=== PATIENT | male | born 1965 | race American Indian/Alaskan Native ===

== ENCOUNTER 2017-05-10 02:34 | Emergency (ER) | payer MEDICARE, OTHER ==
[2017-05-10 02:34] VITALS: BMI 39.5
--- NOTE | 2017-05-10 02:39 | ED PDOC ---
Arrival/HPI - General Time Seen by Provider: 05/10/17 02:35 Historian: Patient - History of Present Illness Narrative History of Present Illness (Text): 05/10/17 02:55 Johnnie Frank is a 51 year old male, whose past medical history includes chronic pain, HIV/AIDS, left CVA, left tibula/fibular fracture, COPD, hypertension, and obesity, who presents to the ED brought in by EMS status post fall. Patient tonight while at home a piece of the ceiling/plaster fell on to back of his head and right side. Patient now complaining of right shoulder pain. Patient denies any loss of consciousness, chest pain, shortness of breath, nausea, vomiting, back pain, neck pain, headache, dizziness, or any other complaints. Time/Duration: Prior to Arrival Symptom Onset: Sudden Symptom Course: Unchanged Activities at Onset: Light Context: Home Past Medical History - Provider Review Nursing Documentation Reviewed: Yes - Infectious Disease Hx of Infectious Diseases: None - Tetanus Immunization Tetanus Immunization: Unknown - Cardiac Hx Cardiac Disorders: Yes Hx Congestive Heart Failure: No Hx Hypertension: No - Pulmonary Hx Chronic Obstructive Pulmonary Disease (COPD): No - Neurological HX Cerebrovascular Accident: No - HEENT Hx HEENT Disorder: Yes (glasses) - Renal Hx Renal Failure: No - Endocrine/Metabolic Hx Diabetes Mellitus Type 1: No Hx Diabetes Mellitus Type 2: No Hx Hypothyroidism: No - Hematological/Oncological Hx Cancer: No - Integumentary Hx Dermatological Disorder: No Hx Basal Cell Carcinoma: No - Musculoskeletal/Rheumatological Hx Arthritis: No Hx Rheumatoid Arthritis: No - Gastrointestinal Hx Gastroesophageal Reflux: No - Genitourinary/Gynecological Hx Genitourinary Disorders: No - Psychiatric Hx Anxiety: Yes Hx Substance Use: No - Surgical History Hx Appendectomy: Yes Hx Cardiac Catheterization: No Hx Cholecystectomy: Yes Hx Coronary Stent: No - Anesthesia Hx Anesthesia: Yes Hx Anesthesia Reactions: No Hx Malignant Hyperthermia: No - Suicidal Assessment Feels Threatened In Home Enviroment: No Family/Social History - Physician Review Nursing Documentation Reviewed: Yes Family/Social History: Unknown Family HX Smoking Status: Heavy Smoker > 10 Cigarettes Daily Hx Alcohol Use: No Hx Substance Use: No Allergies/Home Meds Allergies/Adverse Reactions: Allergies Iodinated Contrast- Oral and IV Dye [Iodinated Contrast Media - Oral and] Allergy (Verified 05/10/17 02:53) SHORTNESS OF BREATH Penicillins Allergy (Verified 05/10/17 02:53) SHORTNESS OF BREATH shellfish derived Allergy (Verified 05/10/17 02:53) SHORTNESS OF BREATH sulfamethoxazole [From Bactrim] Allergy (Verified 05/10/17 02:53) ITCHING trimethoprim [From Bactrim] Allergy (Verified 05/10/17 02:53) ITCHING mushroom Allergy (Uncoded 05/10/17 02:53) ITCHING Home Medications: Home Meds Medication Instructions Recorded Confirmed Unobtainable 05/10/17 05/10/17 Review of Systems - Physician Review All systems were reviewed & negative as marked: Yes - Review of Systems Constitutional: Normal. absent: Fevers Eyes: Normal ENT: Normal Respiratory: Normal. absent: SOB, Cough Cardiovascular: Normal. absent: Chest Pain Gastrointestinal: Normal. absent: Abdominal Pain, Diarrhea, Nausea, Vomiting Genitourinary Male: Normal. absent: Dysuria, Frequency, Hematuria, Urinary Output Changes Musculoskeletal: Arthralgias (+right shoulder pain). absent: Back Pain, Neck Pain Skin: Normal. absent: Rash Neurological: Normal. absent: Headache, Dizziness Endocrine: Normal Hemo/Lymphatic: Normal Psychiatric: Normal Physical Exam Vital Signs Reviewed: Yes Vital Signs Temp Pulse Resp BP Pulse Ox 05/10/17 06:19 67 18 137/62 100 05/10/17 02:55 98.4 F 68 16 141/78 98 Temperature: Afebrile Blood Pressure: Normal Pulse: Regular Respiratory Rate: Normal Appearance: Positive for: Well-Appearing, Non-Toxic, Comfortable Pain Distress: None Mental Status: Positive for: Alert and Oriented X 3 - Systems Exam Head: Present: Atraumatic, Normocephalic Pupils: Present: PERRL Extroacular Muscles: Present: EOMI Conjunctiva: Present: Normal Mouth: Present: Moist Mucous Membranes Neck: Present: Normal Range of Motion Respiratory/Chest: Present: Clear to Auscultation, Good Air Exchange. No: Respiratory Distress, Accessory Muscle Use Cardiovascular: Present: Regular Rate and Rhythm, Normal S1, S2. No: Murmurs Abdomen: Present: Normal Bowel Sounds. No: Tenderness, Distention, Peritoneal Signs Back: Present: Normal Inspection Upper Extremity: Present: Normal Inspection. No: Cyanosis, Edema Lower Extremity: Present: Normal Inspection. No: Edema Neurological: Present: GCS=15, CN II-XII Intact, Speech Normal Skin: Present: Warm, Dry, Normal Color. No: Rashes Psychiatric: Present: Alert, Oriented x 3, Normal Insight, Normal Concentration Medical Decision Making ED Course and Treatment: 05/10/17 02:55 Impression: 51 year old male complaining of right shoulder pain today Plan: -- CT Head w/o contrast -- XR Right Shoulder -- Oxycodone -- Reassess and disposition Progress Notes: 05/10/17 04:53 Reviewed XR Shoulder, shows arthritic changes, otherwise no acute processes. 05/10/17 05:02 CT Head shows: Brain: Minimal atrophy. No intracranial hemorrhage. No mass. Moderate encephalomalacia within LEFT parietal region. Few scattered foci of decreased attenuation within periventricular/subcortical white matter. No edema. Ventricles: No hydrocephalus. Bones/joints: No acute fracture. Soft tissues: Mild stranding within scalp. Vasculature: Minimal atherosclerotic disease of intracranial arteries. Sinuses: Scattered minimal mucosal thickening of ethmoid sinuses. Mastoid air cells: No mastoid effusion. Orbits: Unremarkable as visualized. IMPRESSION: 1. No intracranial hemorrhage. 2. Nonspecific white matter changes. 3. Incidental/non-acute findings are described above. 05/10/17 05:59 On reevaluation the patient feels better and is in no acute distress. I have discussed the results and plan with the patient, who expresses understanding. Patient given the opportunity to ask question, all questions were answered and there is agreement with the plan to discharge the patient home. Patient is stable for discharge. Patient was instructed to follow up with physician/clinic in 1-2 days or return if symptoms persist/worsen or new concerning symptoms arise. - RAD Interpretation Radiology Orders: 05/10/17 02:59 HEAD W/O CONTRAST [CT] Stat 05/10/17 03:00 SHOULDER RIGHT [RAD] Stat - Medication Orders Current Medication Orders: Discontinued Medications Oxycodone HCl (Oxycodone Immediate Release Tab) 30 mg PO STAT STA Stop: 05/10/17 03:01 Last Admin: 05/10/17 03:15 Dose: 30 mg [facility] Pain Assessment Document 05/10/17 03:15 OCS (Rec: 05/10/17 03:19 OCS [id number]) Pain Reassessment Is this a pain reassessment? Yes Sleep Is patient sleeping during reassessment? 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 I have reviewed the chart and agree that the record accurately reflects my personal performance of the history, physical exam, medical decision making, and the department course for this patient. I have also personally directed, reviewed, and agree with the discharge instructions and disposition. Disposition/Present on Arrival - Present on Arrival Any Indicators Present on Arrival: No History of DVT/PE: No History of Uncontrolled Diabetes: No Urinary Catheter: No History Surgical Site Infection Following: Orthopedic Procedures - Disposition Have Diagnosis and Disposition been Completed?: Yes Diagnosis: Shoulder sprain Disposition: HOME/ ROUTINE Disposition Time: 05:59 Condition: GOOD Discharge Instructions (ExitCare): Shoulder Sprain (ED) Additional Instructions: use sling 4 to 5 days Referrals: Berna Newman MD [Primary Care Provider] - Follow up with primary Forms: [employer] ([place])
[2017-05-10 02:55] VITALS: TEMP 98.4
[2017-05-10] MEDS ORDERED: oxyCODONE 30 mg Immediate Release Tab PO STA (03:00)
--- NOTE | 2017-05-10 05:04 | CT ---
EXAM: CT Head Without Intravenous Contrast CLINICAL HISTORY: 51 years old, male; Injury or trauma; Fall; Initial encounter; Concussion / head injury TECHNIQUE: Axial computed tomography images of the head/brain without intravenous contrast. All CT scans at this facility use one or more dose reduction techniques, viz.: automated exposure control; ma/kV adjustment per patient size (including targeted exams where dose is matched to indication; i.e. head); or iterative reconstruction technique. COMPARISON: CT - HEAD W/O CONTRAST 08/13/2016 11:22:05 AM FINDINGS: Brain: Minimal atrophy. No intracranial hemorrhage. No mass. Moderate encephalomalacia within LEFT parietal region. Few scattered foci of decreased attenuation within periventricular/subcortical white matter. No edema. Ventricles: No hydrocephalus. Bones/joints: No acute fracture. Soft tissues: Mild stranding within scalp. Vasculature: Minimal atherosclerotic disease of intracranial arteries. Sinuses: Scattered minimal mucosal thickening of ethmoid sinuses. Mastoid air cells: No mastoid effusion. Orbits: Unremarkable as visualized. IMPRESSION: 1. No intracranial hemorrhage. 2. Nonspecific white matter changes. 3. Incidental/non-acute findings are described above.
[2017-05-10 06:19] VITALS: BP 137/62; PULSE 67; RESP 18; O2SAT 100
--- NOTE | 2017-05-10 08:50 | RAD ---
PROCEDURE: Radiographs of the Right Shoulder HISTORY: fall COMPARISON: No prior. FINDINGS: BONES: Technically limited examination. No evidence of fracture. JOINTS: Unremarkable glenohumeral articulation. Acromioclavicular degenerative arthritis is noted. SOFT TISSUES: Normal. OTHER FINDINGS: None. IMPRESSION: No acute fracture.
== END 2017-05-10 04:52 | disposition home or self-care (01) ==
LOC: ED 02:34
DX: S43.401A Unspecified sprain of right shoulder joint, initial encounter (principal); W20.8XXA Other cause of strike by thrown, projected or falling object, initial encounter; Y93.9 Activity, unspecified; Y92.009 Unspecified place in unspecified non-institutional (private) residence as the place of occurrence of the external cause

== ENCOUNTER 2017-08-02 09:08 | Emergency (ER) | payer MEDICARE, OTHER ==
[2017-08-02 09:28] VITALS: BMI 37.5
[2017-08-02] MEDS ORDERED: Albuterol-Ipratrop 3 mg / 0.5 (3 ml) UD IH STA (09:37)
--- NOTE | 2017-08-02 09:42 | ED PDOC ---
Arrival/HPI - General Chief Complaint: Flu-like Symptoms Time Seen by Provider: 08/02/17 09:26 Historian: Patient - History of Present Illness Narrative History of Present Illness (Text): 08/02/17 09:39 52 year old male w/Past medical history of HIV, CVA, DJD, smoker, present to Emergency department for evaluation of flu-like symptoms for last couple of days associated with nasal congestion and productive cough with yellow sputum. Pt admits was using inhaler at home with minimal improvement. Pt reports, worried that he may have pneumonia. Otherwise, pt denies high fever, chills, headache, dizziness, neck pain, drooling, dysphagia, dyspnea, shortness of breath, wheezing, palpitation, diaphoresis, abd. pain, N/V/D, back pain, UTI sx , denies peripheral swelling. Pt does have AIDS but last viral load was undetectable. Pt's PMD is Dr. Aiden D[facility]az at [facility] in [place]. Past Medical History - Provider Review Nursing Documentation Reviewed: Yes - Travel History Have you recently traveled outside [place] w/in the past 3 mons?: No - Infectious Disease Hx of Infectious Diseases: None - Tetanus Immunization Tetanus Immunization: Unknown - Cardiac Hx Cardiac Disorders: No - Pulmonary Hx Respiratory Disorders: Yes Hx Bronchitis: Yes - Neurological Hx Neurological Disorder: No - HEENT Hx HEENT Disorder: Yes (glasses) - Renal Hx Renal Disorder: No - Endocrine/Metabolic Hx Endocrine Disorders: No - Hematological/Oncological Hx Blood Disorders: Yes Hx AIDS: Yes - Integumentary Hx Dermatological Disorder: No - Musculoskeletal/Rheumatological Hx Musculoskeletal Disorders: Yes Other/Comment: Oseto-necrosis. Bacterial to Left Knee - Gastrointestinal Hx Gastrointestinal Disorders: No Hx Gastroesophageal Reflux: No - Genitourinary/Gynecological Hx Genitourinary Disorders: No - Psychiatric Hx Psychophysiologic Disorder: Yes Hx Anxiety: Yes Hx Substance Use: No (Former Cocaine User) - Surgical History Hx Appendectomy: Yes Hx Cholecystectomy: Yes Hx Orthopedic Surgery: Yes (Bacteria to Left Knee) - Anesthesia Hx Anesthesia: Yes Hx Anesthesia Reactions: No Hx Malignant Hyperthermia: No - Suicidal Assessment Feels Threatened In Home Enviroment: No Family/Social History - Physician Review Nursing Documentation Reviewed: Yes Family/Social History: No Known Family HX Smoking Status: Light Smoker < 10 Cigarettes Daily Hx Alcohol Use: No Hx Substance Use: No (Former Cocaine User) Allergies/Home Meds Allergies/Adverse Reactions: Allergies Iodinated Contrast- Oral and IV Dye [Iodinated Contrast Media - Oral and] Allergy (Verified 08/02/17 09:29) SHORTNESS OF BREATH Penicillins Allergy (Verified 08/02/17 09:29) SHORTNESS OF BREATH shellfish derived Allergy (Verified 08/02/17 09:29) SHORTNESS OF BREATH sulfamethoxazole [From Bactrim] Allergy (Verified 08/02/17 09:29) ITCHING trimethoprim [From Bactrim] Allergy (Verified 08/02/17 09:29) ITCHING mushroom Allergy (Uncoded 08/02/17 09:29) ITCHING Review of Systems - Review of Systems Constitutional: Normal Eyes: Normal ENT: Normal Respiratory: Cough, Sputum. absent: SOB, Wheezing Cardiovascular: Normal. absent: Chest Pain, Palpitations, Edema, Calf Pain, Orthopnea Gastrointestinal: Normal Genitourinary Male: Normal Musculoskeletal: Normal Skin: Normal Neurological: Normal Endocrine: Normal Hemo/Lymphatic: Normal Psychiatric: Normal Physical Exam Vital Signs Reviewed: Yes Vital Signs Temp Pulse Resp BP Pulse Ox 08/02/17 09:37 98.1 F 80 17 162/82 H 99 Temperature: Afebrile Blood Pressure: Hypertensive Pulse: Regular Respiratory Rate: Normal Appearance: Positive for: Well-Appearing, Non-Toxic, Comfortable, Other ( occasional productive cough noted in ED. Pt spitting up clear sputum.) Pain Distress: None Mental Status: Positive for: Alert and Oriented X 3 - Systems Exam Head: Present: Normocephalic Conjunctiva: Present: Normal Ears: Present: NORMAL TM Mouth: Present: Moist Mucous Membranes. No: Drooling Pharnyx: No: ERYTHEMA, EXUDATE Nose (Internal): Present: Edematous, Rhinorrhea (clear) Neck: Present: Trachea Midline. No: JVD, Bruit (B/L) Respiratory/Chest: Present: Clear to Auscultation, Good Air Exchange. No: Respiratory Distress, Accessory Muscle Use Cardiovascular: Present: Regular Rate and Rhythm, Normal S1, S2. No: Murmurs Abdomen: Present: Normal Bowel Sounds. No: Tenderness, Distention, Peritoneal Signs, Rebound, Guarding Back: Present: Normal Inspection Upper Extremity: Present: Normal ROM. No: Deformity Lower Extremity: Present: Normal ROM. No: Edema, CALF TENDERNESS, Deformity Neurological: Present: GCS=15, Speech Normal Skin: Present: Warm, Dry, Normal Color. No: Rashes Psychiatric: Present: Alert, Oriented x 3, Normal Insight, Normal Concentration Medical Decision Making ED Course and Treatment: 08/02/17 11:53 PT WAS OBS IN Emergency department FOR 2.5 HOURS AND REPORTS IMPROVEMENT IN SX. no more cough noted in ED. Pt denies SOB, dyspnea, CP at present time. Afebrile, hemodynamicaly stable. Non-toxic. PulsEOx 99% RA Neck; Supple, (-) JVD, (-) carotid bruits B/L Lungs: CTA B/L, BS equal B/L. CVS: (+)S1S2, reg Abd: benign, (-) guarding, (-)rebound, (-) localized tenderness. Neuorlogicaly intact. Blood work review and appears without acute abnormalities compare to baseline. CXR, EKG review and appears normal. Pt has clinical findings c/w asthma exacerbation, bronchitis. Pt advised on course of ds. ref. to f/u with PMD in 2-3 days for re-eval. return if any worsening or new changes. - Lab Interpretations Lab Results: 08/02/17 10:35 08/02/17 10:35 Lab Results 08/02/17 10:35: Sodium 137, Potassium 4.6, Chloride 105, Carbon Dioxide 23, Anion Gap 14, BUN 16, Creatinine 1.0, Est GFR ( Amer) > 60, Est GFR (Non- Af Amer) > 60, Random Glucose 105, Calcium 9.5, Total Bilirubin 0.5, AST 27, ALT 36, Alkaline Phosphatase 115, Lactate Dehydrogenase 425, Total Creatine Kinase 221, Troponin I 0.02 D, Total Protein 7.4, Albumin 4.2, Globulin 3.2, Albumin/Globulin Ratio 1.3 08/02/17 10:35: WBC 10.3, RBC 5.37, Hgb 15.3, Hct 45.9, MCV 85.5, MCH 28.5, MCHC 33.3, RDW 15.8 H, Plt Count 213, MPV 9.9, Gran % 60.5, Lymph % (Auto) 25.4 , Wilkinson % (Auto) 11.9 H, Eos % (Auto) 2.0, Baso % (Auto) 0.2, Gran # 6.23, Lymph # 2.6, Wilkinson # 1.2 H, Eos # 0.2, Baso # 0.02 Interpretation: No sign. chg./baseline - RAD Interpretation Radiology Orders: 08/02/17 09:34 CHEST TWO VIEWS (PA/LAT) [RAD] Stat Patient Name / ID : VIDA SKY / [id number] Exam Date : 08/02/2017 11:32:55 ( Approved ) Study Comment : Sex / Age : M / 52Y Creator : Jayden Lizarraga MD Dictator : Jayden Lizarraga MD Senior Principal : Supervisor Pyrotechnic Loading : Jayden Lizarraga MD Approver2 : Report Date : 08/02/2017 11:59:35 My Comment : HISTORY: Cough COMPARISON: 08/09/2016 TECHNIQUE: Chest PA and lateral FINDINGS: LUNGS: No active pulmonary disease. PLEURA: No significant pleural effusion identified. No pneumothorax apparent. CARDIOVASCULAR: Normal. OSSEOUS STRUCTURES: No significant abnormalities. VISUALIZED UPPER ABDOMEN: Normal. OTHER FINDINGS: None. IMPRESSION: No active disease. - Medication Orders Current Medication Orders: Discontinued Medications Albuterol/Ipratropium (Duoneb 3 Mg/0.5 Mg (3 Ml) Ud) 3 ml IH STAT STA Stop: 08/02/17 09:38 Last Admin: 08/02/17 10:42 Dose: 3 ml Azithromycin (Zithromax) 500 mg PO STAT STA PRN Reason: Protocol Stop: 08/02/17 11:04 Last Admin: 08/02/17 12:08 Dose: 500 mg Benzonatate (Tessalon Perles) 200 mg PO STAT STA Stop: 08/02/17 09:40 Last Admin: 08/02/17 10:42 Dose: 200 mg Methylprednisolone (Solu-Medrol) 125 mg IVP STAT STA Stop: 08/02/17 09:38 Last Admin: 08/02/17 10:42 Dose: 125 mg IVP Administration Document 08/02/17 10:42 OCS (Rec: 08/02/17 10:42 OCS [id number]) Charges for Administration # of IVP Administrations 1 Disposition/Present on Arrival - Present on Arrival Any Indicators Present on Arrival: No History of DVT/PE: No History of Uncontrolled Diabetes: No Urinary Catheter: No History of Decub. Ulcer: No History Surgical Site Infection Following: None - Disposition Have Diagnosis and Disposition been Completed?: Yes Diagnosis: Bronchitis, Asthma Disposition: HOME/ ROUTINE Disposition Time: 11:51 Patient Plan: Discharge Patient Problems: Current Active Problems Problem Status Onset Bronchitis Acute Asthma Acute Condition: STABLE Additional Instructions: ENCOURAGE FLUIDS BED REST FOR 2-3 DAYS TAKE MEDICATION PRESCRIBED NEBULIZER TREATMENT EVERY 4 HOURS FOR 1-2 DAYS FOLLOW UP WITH PMD IN 1-2 DAYS FOR RE-EVALUATION. RETURN TO Emergency department AT ANY TIME IF ANY WORSENING OR NEW CHANGES. Prescriptions: Azithromycin [Zithromax] 250 mg PO DAILY #4 tab Benzonatate [Tessalon Perle] 100 mg PO TID #14 capsule Prednisone [Deltasone] 60 mg PO DAILY #9 tablet Referrals: Berna Newman MD [Family Provider] - Follow up with primary Forms: [employer] ([place])
[2017-08-02 09:46] VITALS: RESP 17; TEMP 98.1
[2017-08-02 10:49] LABS: BASO # 0.02 K/mm3 (0.0-2.0); BASO % 0.2 % (0.0-3.0); EOS # 0.2 (0.0-0.7); GRAN # 6.23 (1.4-6.5); GRAN % 60.5 % (50.0-68.0); HEMATOCRIT 45.9 % (42.0-52.0); LYMPH # 2.6 (1.2-3.4); LYMPH % 25.4 % (22.0-35.0); MEAN CELL VOLUME 85.5 fl (80.0-105.0); MEAN CORPUSCULAR HEMOGLOBIN 28.5 pg (25.0-35.0); MEAN CORPUSCULAR HGB CONC 33.3 g/dl (31.0-37.0); MEAN PLATELET VOLUME 9.9 fl (7.0-11.0); MONO # 1.2 (0.1-0.6); MONO % 11.9 % (1.0-6.0); RED CELL DISTRIBUTION WIDTH 15.8 % (11.5-14.5); WHITE BLOOD COUNT 10.3 10^3/ul (4.5-11.0)
[2017-08-02 11:02] LABS: ALB/GLOB RATIO 1.3 (1.1-1.8); ALKALINE PHOSPHATASE 115 U/L (38-126); ALT/SGPT 36 U/L (7-56); AST/SGOT 27 U/L (17-59); BILIRUBIN,TOTAL 0.5 mg/dL (0.2-1.3); BLOOD UREA NITROGEN 16 mg/dL (7-21); CALCIUM 9.5 mg/dL (8.4-10.5); CARBON DIOXIDE 23 mmol/L (21-33); CHLORIDE 105 mmol/L (98-107); GFR AFRICAN-AMERICAN > 60; GLUCOSE,RANDOM 105 mg/dL (70-110); POTASSIUM 4.6 mmol/L (3.6-5.0); SODIUM 137 mmol/L (132-148); TOTAL PROTEIN 7.4 g/dL (5.8-8.3)
[2017-08-02 11:13] LABS: TROPONIN I 0.02 ng/mL
--- NOTE | 2017-08-02 12:01 | RAD ---
HISTORY: Cough COMPARISON: 08/09/2016 TECHNIQUE: Chest PA and lateral FINDINGS: LUNGS: No active pulmonary disease. PLEURA: No significant pleural effusion identified. No pneumothorax apparent. CARDIOVASCULAR: Normal. OSSEOUS STRUCTURES: No significant abnormalities. VISUALIZED UPPER ABDOMEN: Normal. OTHER FINDINGS: None. IMPRESSION: No active disease.
[2017-08-02 12:40] VITALS: BP 159/75; PULSE 82; O2SAT 100
== END 2017-08-02 12:42 | disposition home or self-care (01) ==
LOC: ED 09:08
DX: J40 Bronchitis, not specified as acute or chronic (principal); J45.909 Unspecified asthma, uncomplicated; Z21 Asymptomatic human immunodeficiency virus [HIV] infection status; Z88.0 Allergy status to penicillin
CPT/HCPCS: 71020; 80053; 82550; 83615; 84484; 85025; 87040; 96374; 99283; J2930

== ENCOUNTER 2017-11-28 11:44 | Emergency (ER) | payer MEDICARE, OTHER ==
[2017-11-28 11:44] VITALS: BMI 37.5
[2017-11-28 11:56] VITALS: TEMP 98.5
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
[2017-11-28 12:53] LABS: VENOUS BLOOD GAS BASE EXCESS -0.3 mmol/L (0.0-2.0); VENOUS BLOOD GAS PO2 178 mm/Hg (30-55); VENOUS BLOOD PH 7.41 (7.32-7.43)
[2017-11-28 12:55] LABS: BASO # 0.01 K/mm3 (0.0-2.0); BASO % 0.1 % (0.0-3.0); EOS # 0.2 (0.0-0.7); EOS % 2.7 % (1.5-5.0); GRAN # 4.09 (1.4-6.5); GRAN % 48.7 % (50.0-68.0); HEMOGLOBIN 15.5 g/dL (14.0-18.0); LYMPH # 3.3 (1.2-3.4); LYMPH % 39.8 % (22.0-35.0); MEAN CELL VOLUME 84.3 fl (80.0-105.0); MEAN CORPUSCULAR HEMOGLOBIN 28.2 pg (25.0-35.0); MEAN CORPUSCULAR HGB CONC 33.5 g/dl (31.0-37.0); MEAN PLATELET VOLUME 10.2 fl (7.0-11.0); MONO # 0.7 (0.1-0.6); MONO % 8.7 % (1.0-6.0); RBC 5.49 10^6/uL (3.5-6.1); RED CELL DISTRIBUTION WIDTH 14.9 % (11.5-14.5); WHITE BLOOD COUNT 8.4 10^3/ul (4.5-11.0)
[2017-11-28 13:02] LABS: INR 0.97 (0.93-1.08); PROTHROMBIN TIME 11.2 SECONDS (9.4-12.5)
[2017-11-28 13:09] LABS: ALB/GLOB RATIO 1.3 (1.1-1.8); ALBUMIN 4.5 g/dL (3.0-4.8); ALT/SGPT 47 U/L (7-56); AST/SGOT 30 U/L (17-59); BLOOD UREA NITROGEN 18 mg/dL (7-21); CALCIUM 10.1 mg/dL (8.4-10.5); GFR AFRICAN-AMERICAN > 60; GFR NON-AFRICAN AMERICAN 58
--- NOTE | 2017-11-28 13:35 | RAD ---
PROCEDURE: Right Knee Radiographs. HISTORY: Increasing Pain, Arthritis hx COMPARISON: None. FINDINGS: BONES: No acute fracture. Proliferative hypertrophic changes emanating from the femoral condyle and tibial plateau regions. JOINTS: Degenerative changes primarily affecting the lateral compartment. JOINT EFFUSION: None. OTHER FINDINGS: None. IMPRESSION: No acute findings related to/accounting for the clinical presentation.
--- NOTE | 2017-11-28 14:36 | US ---
HISTORY: Leg pain and swelling. Evaluate for DVT PHYSICIAN(S): Jayden Bass MD. TECHNIQUE: Duplex sonography and color-flow Doppler with graded compression were used to evaluate the deep venous systems of both lower extremities. FINDINGS: The visualized deep venous systems of both lower extremities are sonographically normal and compressible. Normal wave forms and augmentation are seen. There is no sonographic evidence for deep venous thrombosis in the visualized segments of both lower extremities. IMPRESSION: No sonographic evidence for deep venous thrombosis in the visualized segments of both lower extremities.
[2017-11-28] MEDS ORDERED: oxyCODONE 30 mg Immediate Release Tab PO ONE (14:49)
[2017-11-28 15:26] VITALS: BP 168/95; PULSE 74; RESP 19; O2SAT 97
== END 2017-11-28 15:30 | disposition home or self-care (01) ==
LOC: ED 11:44
DX: G89.29 Other chronic pain (principal); M79.662 Pain in left lower leg; M79.661 Pain in right lower leg

== ENCOUNTER 2018-01-17 13:04 | Emergency (ER) | payer MEDICARE, OTHER ==
[2018-01-17 13:05] VITALS: BMI 37.5
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
[2018-01-17 13:41] VITALS: TEMP 98.5
[2018-01-17] MEDS ORDERED: Fluticasone Nasal 50 mcg/Spray NS STA (13:41)
[2018-01-17] MEDS ORDERED: Sodium Chloride 0.9% 1,000 ML IV SCH (13:45)
[2018-01-17] MEDS ORDERED: Albuterol-Ipratrop 3 mg / 0.5 (3 ml) UD IH STA (13:57)
[2018-01-17 14:37] LABS: BASO # 0.01 K/mm3 (0.0-2.0); BASO % 0.1 % (0.0-3.0); EOS # 0.3 (0.0-0.7); EOS % 4.7 % (1.5-5.0); GRAN # 3.18 (1.4-6.5); GRAN % 45.6 % (50.0-68.0); HEMOGLOBIN 13.1 g/dL (14.0-18.0); LYMPH # 2.6 (1.2-3.4); LYMPH % 37.7 % (22.0-35.0); MEAN CELL VOLUME 84.2 fl (80.0-105.0); MEAN CORPUSCULAR HGB CONC 33.2 g/dl (31.0-37.0); MEAN PLATELET VOLUME 9.7 fl (7.0-11.0); MONO # 0.8 (0.1-0.6); MONO % 11.9 % (1.0-6.0); RBC 4.68 10^6/uL (3.5-6.1); RED CELL DISTRIBUTION WIDTH 15.6 % (11.5-14.5)
--- NOTE | 2018-01-17 14:39 | RAD ---
HISTORY: cough, chills COMPARISON: 08/02/2017 FINDINGS: LUNGS: No active pulmonary disease. PLEURA: No significant pleural effusion identified, no pneumothorax apparent. CARDIOVASCULAR: Mild cardiomegaly OSSEOUS STRUCTURES: No significant abnormalities. VISUALIZED UPPER ABDOMEN: Normal. OTHER FINDINGS: None. IMPRESSION: No active disease.
[2018-01-17 14:47] LABS: ALB/GLOB RATIO 1.2 (1.1-1.8); ALBUMIN 3.8 g/dL (3.0-4.8); ALT/SGPT 50 U/L (7-56); AST/SGOT 36 U/L (17-59); BLOOD UREA NITROGEN 9 mg/dL (7-21); CALCIUM 8.4 mg/dL (8.4-10.5); GFR AFRICAN-AMERICAN > 60; GFR NON-AFRICAN AMERICAN > 60
[2018-01-17 14:59] LABS: B-TYPE NATRIURETIC PEPTIDE 361 pg/mL (0-450); TROPONIN I 0.02 ng/mL
[2018-01-17 16:13] VITALS: BP 152/79; PULSE 72; RESP 19; O2SAT 100
--- NOTE | 2018-01-17 18:27 | CARD ---
APPROVED REPORT EKG Measurement Heart [id number] <Conclusion> Normal sinus rhythm RVCD LVH by violtage STTW changes c/w ischemia
== END 2018-01-17 16:08 | disposition home or self-care (01) ==
LOC: ED 13:04
DX: J01.90 Acute sinusitis, unspecified (principal); E78.5 Hyperlipidemia, unspecified; I10 Essential (primary) hypertension; Z86.73 Personal history of transient ischemic attack (TIA), and cerebral infarction without residual deficits; Z21 Asymptomatic human immunodeficiency virus [HIV] infection status; F17.210 Nicotine dependence, cigarettes, uncomplicated
CPT/HCPCS: 71045; 80053; 83880; 84484; 85025; 93005; 99283; J7030

== ENCOUNTER 2018-11-26 10:46 | Observation (INO) | payer MEDICARE, OTHER ==
[2018-11-26] MEDS ORDERED: Morphine 4 mg/ml ISec IVP STA ×2 (11:31→14:19)
[2018-11-26] MEDS ORDERED: Sodium Chloride 0.9% 1,000 ML IV STA (11:32)
--- NOTE | 2018-11-26 11:33 | ED PDOC ---
Arrival/HPI - General Chief Complaint: Abdominal Pain Time Seen by Provider: 11/26/18 11:03 Historian: Patient - History of Present Illness Narrative History of Present Illness (Text): 11/26/18 11:35 53 year old male, with a past medical history of hypertension, hyperlipidemia, CVA, HIV with AIDS defining disease, CVA, osteonecrosis, and bacterial infection of the leg, who presents to the emergency department complaining of voice change x 2 weeks. Patient is also complaining of a sharp, burning, non radiating epigastric abdominal pain, reported as "acid feeling" for the past 5 days. Patient endorses vomiting with intake of food and water. Patient denies any fevers, chills, headache, dizziness, diarrhea, chest pain, back pain, shortness of breath or any other complaints. Patient reports he takes oxycodone for the pain, with minimal relief. PMD: Christiano Laughlin M.D Time/Duration: > week Symptom Onset: Gradual Symptom Course: Unchanged Activities at Onset: Light Context: Home Past Medical History - Provider Review Nursing Documentation Reviewed: Yes - Travel History Have you recently traveled outside [place] w/in the past 3 mons?: No - Infectious Disease Hx of Infectious Diseases: None - Tetanus Immunization Tetanus Immunization: Unknown - Cardiac Hx Cardiac Disorders: No Hx Hypertension: Yes - Pulmonary Hx Respiratory Disorders: Yes Hx Bronchitis: Yes - Neurological Hx Neurological Disorder: No - HEENT Hx HEENT Disorder: Yes (glasses) - Renal Hx Renal Disorder: No - Endocrine/Metabolic Hx Endocrine Disorders: No - Hematological/Oncological Hx Blood Disorders: Yes Hx AIDS: Yes - Integumentary Hx Dermatological Disorder: No - Musculoskeletal/Rheumatological Hx Musculoskeletal Disorders: Yes Hx Osteoarthritis: Yes Other/Comment: Oseto-necrosis. Bacterial to Left Knee - Gastrointestinal Hx Gastrointestinal Disorders: No Hx Gastroesophageal Reflux: No - Genitourinary/Gynecological Hx Genitourinary Disorders: No - Psychiatric Hx Psychophysiologic Disorder: Yes Hx Anxiety: Yes Hx Substance Use: No (Former Cocaine User) - Surgical History Hx Appendectomy: Yes Hx Cholecystectomy: Yes Hx Orthopedic Surgery: Yes (Bacteria to Left Knee) - Anesthesia Hx Anesthesia: Yes Hx Anesthesia Reactions: No Hx Malignant Hyperthermia: No - Suicidal Assessment Feels Threatened In Home Enviroment: No Family/Social History - Physician Review Nursing Documentation Reviewed: Yes Family/Social History: Unknown Family HX Smoking Status: Heavy Smoker > 10 Cigarettes Daily Hx Alcohol Use: No Hx Substance Use: No (Former Cocaine User) Allergies/Home Meds Allergies/Adverse Reactions: Allergies Iodinated Contrast- Oral and IV Dye [Iodinated Contrast Media - Oral and] Allergy (Verified 01/17/18 13:38) SHORTNESS OF BREATH Penicillins Allergy (Verified 01/17/18 13:38) SHORTNESS OF BREATH shellfish derived Allergy (Verified 01/17/18 13:38) SHORTNESS OF BREATH sulfamethoxazole [From Bactrim] Allergy (Verified 01/17/18 13:38) ITCHING trimethoprim [From Bactrim] Allergy (Verified 01/17/18 13:38) ITCHING mushroom Allergy (Uncoded 01/17/18 13:38) ITCHING Home Medications: Home Meds Medication Instructions Recorded Confirmed Albuterol HFA [Ventolin HFA 90 1 puff IH DAILY 11/26/18 11/26/18 mcg/actuation (8 g)] Aspirin [Aspirin Chewable] 81 mg pe PO DAILY 11/26/18 11/26/18 Atorvastatin [Lipitor] 10 mg pe PO TID 11/26/18 11/26/18 Dolutegravir Sodium [Tivicay] 50 mg PO DAILY 11/26/18 11/26/18 Emtricitabine/Tenofovir (Tdf) 1 tab PO DAILY 11/26/18 11/26/18 [Truvada 200 mg-300 mg Tablet] Fluticasone/Vilanterol 200/25 1 puff IH Q6 11/26/18 11/26/18 [Breo Ellipta 200-25 Mcg INH] Gabapentin [Neurontin] 600 mg PO DAILY 11/26/18 11/26/18 Lactulose [Enulose] 1 kevin PO Q6 11/26/18 11/26/18 Lisinopril [Zestril] 10 mg PO DAILY 11/26/18 11/26/18 Pantoprazole [Protonix EC Tab] 40 mg PO DAILY 11/26/18 11/26/18 amLODIPine [Norvasc] 10 mg PO DAILY 11/26/18 11/26/18 hydrALAZINE [Apresoline] 25 mg PO TID 11/26/18 11/26/18 oxyCODONE [oxyCODONE Immediate 30 mg PO DAILY 11/26/18 11/26/18 Release Tab] Review of Systems - Physician Review All systems were reviewed & negative as marked: Yes - Review of Systems Constitutional: absent: Fatigue, Fevers ENT: Voice Changes Respiratory: absent: SOB, Cough Cardiovascular: absent: Chest Pain, Palpitations Gastrointestinal: Abdominal Pain, Vomiting. absent: Constipation, Diarrhea, Nausea, Hematochezia, Hematemesis Genitourinary Male: absent: Dysuria, Frequency, Hematuria Musculoskeletal: absent: Arthralgias, Back Pain, Neck Pain Skin: absent: Rash, Pruritis Neurological: absent: Headache, Dizziness Endocrine: absent: Diaphoresis Physical Exam Vital Signs Reviewed: Yes Vital Signs Temp Pulse Resp BP Pulse Ox 11/26/18 11:15 97.9 F 84 19 129/74 95 Temperature: Afebrile Blood Pressure: Normal Pulse: Regular Respiratory Rate: Normal Appearance: Positive for: Well-Appearing, Non-Toxic, Comfortable Pain Distress: None Mental Status: Positive for: Alert and Oriented X 3 - Systems Exam Head: Present: Atraumatic, Normocephalic Conjunctiva: Present: Normal Mouth: Present: Moist Mucous Membranes, Normal Lips. No: Drooling, Trismus Pharnyx: Present: Normal. No: ERYTHEMA, EXUDATE, TONSILS ENLARGED Nose (External): Present: Atraumatic Nose (Internal): Present: Normal Inspection Neck: Present: Normal Range of Motion Respiratory/Chest: Present: Clear to Auscultation, Good Air Exchange. No: Respiratory Distress, Accessory Muscle Use Cardiovascular: Present: Regular Rate and Rhythm, Normal S1, S2. No: Murmurs Abdomen: Present: Tenderness (minimal epigastirc tenderness). No: Distention, Peritoneal Signs, Rebound, Guarding Back: Present: Normal Inspection. No: CVA Tenderness, Midline Tenderness, Paraspinal Tenderness Upper Extremity: Present: Normal Inspection. No: Cyanosis, Edema Lower Extremity: Present: Normal Inspection. No: Edema Neurological: Present: GCS=15, Speech Normal Skin: Present: Warm, Dry, Normal Color. No: Rashes Psychiatric: Present: Alert, Oriented x 3 Medical Decision Making ED Course and Treatment: 11/26/18 11:29 53 year old male presents to the emergency department complaining of voice change x 2 weeks, and worsening epigastric abdominal pain x 5 days with associated vomiting. Plan: -- VBG -- CT -- EKG -- Labs -- Chest X-ray -- Morphine -- Protonix -- zofran -- Blood culture -- Urine culture -- Urinalysis -- Reassess and disposition Prior Visits: Notes and results from previous visits were reviewed. Patient was last seen in the emergency department on Progress Notes: CBC: wbc; 12.4 CMP: glucose; 137 Lipase: wnl lactic acid; wnl cxr:FINDINGS: LUNGS: The lungs are well inflated. There is moderate pulmonary venous congestion. PLEURA: No pleural effusions or pneumothorax. CARDIOVASCULAR: The heart is normal in size. No aortic atherosclerotic calcifications present. OSSEOUS STRUCTURES: Within normal limits for the patient's age. VISUALIZED UPPER ABDOMEN: Normal. OTHER FINDINGS: None. IMPRESSION: No active pulmonary disease. Moderate pulmonary venous congestion. EKG: Normal sinus rhythm at [address] depression seen in the lateral leads. Normal axis QTC 410 Urinalysis: wnl CAT scan:FINDINGS: LOWER THORAX: The visualized lungs are clear. LIVER: Normal in size. No gross lesion or ductal dilatation. GALLBLADDER AND BILE DUCTS: Contracted. No calcified gallstones. No common bile duct dilatation. PANCREAS: Normal in size. No gross lesion or ductal dilatation. SPLEEN: Normal in size. ADRENALS: The right adrenal gland is normal in size. There is mild thickening of the left adrenal gland. No discrete nodule. KIDNEYS AND URETERS: Both kidneys are normal in size. No hydronephrosis. There is a punctate nonobstructing stone in the lower pole of the right kidney.. VASCULATURE: Normal in caliber. No aortic aneurysm. There are early aortic atherosclerotic calcifications present. BOWEL: Evaluation of the bowel is limited in the absence of oral contrast. There is fe calization of proximal small bowel contents. The mid and distal small bowel loops are normal in caliber. There is moderate amount of stool in the colon. There is scattered colonic diverticulosis without CT evidence for acute diverticulitis. No bowel wall thickening or obstruction. APPENDIX: Normal appendix. PERITONEUM: No free fluid. No free air. LYMPH NODES: No enlarged lymph nodes. BLADDER: Well distended and normal in appearance. REPRODUCTIVE: The prostate gland is normal in size. BONES: No acute fracture. Severe degenerative disc disease at L5-S1. OTHER FINDINGS: There is a small sliding hiatal hernia. IMPRESSION: 1. No acute abdominal or pelvic abnormality. 2. Constipation. No evidence for bowel obstruction. 3. Scattered colonic diverticulosis without CT evidence for acute diverticulitis. 4. Punctate nonobstructing stone in the lower pole of the right kidney. Patient reassessment: pt with continued pain; morphine added. Discussed all results with patient in depth based on 2 week hx of sore throat, now with epigastric burning pain, hx of AIDS -consider esophagitis, candidiasis. Although there is no thrush visualized within the pharynx. case discussed with dr. carter; accepts observational status admission. Impression: Abdominal pain, vomiting admit obs med/surg - PA / PAPER GRADER / Resident Statement MD/DO has reviewed & agrees with the documentation as recorded. MD/DO has examined the patient and agrees with the treatment plan. - Scribe Statement The provider has reviewed the documentation as recorded by the Marques Martínez Provider Scribe Attestation: All medical record entries made by the Marques were at my direction and personally dictated by me. I have reviewed the chart and agree that the record accurately reflects my personal performance of the history, physical exam, medical decision making, and the department course for this patient. I have also personally directed, reviewed, and agree with the discharge instructions and disposition. Disposition/Present on Arrival - Present on Arrival Any Indicators Present on Arrival: No History of DVT/PE: No History of Uncontrolled Diabetes: No Urinary Catheter: No History of Decub. Ulcer: No History Surgical Site Infection Following: None - Disposition Have Diagnosis and Disposition been Completed?: Yes Diagnosis: Intractable abdominal pain, Sore throat, Vomiting Disposition: HOSPITALIZED Disposition Time: 14:20 Patient Plan: Observation Condition: FAIR
[2018-11-26 11:40] LABS: VENOUS BLOOD GAS BASE EXCESS 5.6 mmol/L (0.0-2.0); VENOUS BLOOD GAS PO2 66 mm/Hg (30-55); VENOUS BLOOD PH 7.44 (7.32-7.43)
--- NOTE | 2018-11-26 11:48 | RAD ---
Date of service: 11/26/2018 HISTORY: Abdominal pain COMPARISON: 01/17/2018. FINDINGS: LUNGS: The lungs are well inflated. There is moderate pulmonary venous congestion. PLEURA: No pleural effusions or pneumothorax. CARDIOVASCULAR: The heart is normal in size. No aortic atherosclerotic calcifications present. OSSEOUS STRUCTURES: Within normal limits for the patient's age. VISUALIZED UPPER ABDOMEN: Normal. OTHER FINDINGS: None. IMPRESSION: No active pulmonary disease. Moderate pulmonary venous congestion.
[2018-11-26 11:50] LABS: BASO # 0.03 K/mm3 (0.0-2.0); BASO % 0.2 % (0.0-3.0); EOS # 0.7 (0.0-0.7); EOS % 5.5 % (1.5-5.0); HEMOGLOBIN 14.8 g/dL (14.0-18.0); LYMPH # 2.8 (1.2-3.4); MEAN CELL VOLUME 85.2 fl (80.0-105.0); MEAN CORPUSCULAR HEMOGLOBIN 27.8 pg (25.0-35.0); MEAN CORPUSCULAR HGB CONC 32.7 g/dl (31.0-37.0); MEAN PLATELET VOLUME 9.7 fl (7.0-11.0); RBC 5.32 10^6/uL (3.5-6.1); RED CELL DISTRIBUTION WIDTH 15.1 % (11.5-14.5); WHITE BLOOD COUNT 12.4 10^3/uL (4.5-11.0)
[2018-11-26 11:52] LABS: BLOOD UREA NITROGEN 19 mg/dL (7-21); CALCIUM 9.6 mg/dL (8.4-10.5); GFR NON-AFRICAN AMERICAN > 60; LIPASE 61 U/L (23-300)
[2018-11-26 12:02] LABS: ALB/GLOB RATIO 1.4 (1.1-1.8); ALBUMIN 4.2 g/dL (3.0-4.8); ALT/SGPT 25 U/L (7-56); AST/SGOT 29 U/L (17-59)
[2018-11-26 12:12] LABS: CK-MB 2.7 ng/mL (0.0-3.6)
[2018-11-26 12:27] LABS: TROPONIN I 0.02 ng/mL
--- NOTE | 2018-11-26 13:32 | CT ---
Date of service: 11/26/2018 PROCEDURE: CT Abdomen and Pelvis without intravenous contrast HISTORY: Abdominal pain COMPARISON: 08/03/2016. TECHNIQUE: CT scan of the abdomen and pelvis was performed without administration of intravenous contrast. Oral contrast was not administered. Coronal and sagittal reformatted images were obtained. Radiation dose: Total exam DLP = 1184.21 mGy-cm. This CT exam was performed using one or more of the following dose reduction techniques: Automated exposure control, adjustment of the mA and/or kV according to patient size, and/or use of iterative reconstruction technique. FINDINGS: LOWER THORAX: The visualized lungs are clear. LIVER: Normal in size. No gross lesion or ductal dilatation. GALLBLADDER AND BILE DUCTS: Contracted. No calcified gallstones. No common bile duct dilatation. PANCREAS: Normal in size. No gross lesion or ductal dilatation. SPLEEN: Normal in size. ADRENALS: The right adrenal gland is normal in size. There is mild thickening of the left adrenal gland. No discrete nodule. KIDNEYS AND URETERS: Both kidneys are normal in size. No hydronephrosis. There is a punctate nonobstructing stone in the lower pole of the right kidney.. VASCULATURE: Normal in caliber. No aortic aneurysm. There are early aortic atherosclerotic calcifications present. BOWEL: Evaluation of the bowel is limited in the absence of oral contrast. There is fecalization of proximal small bowel contents. The mid and distal small bowel loops are normal in caliber. There is moderate amount of stool in the colon. There is scattered colonic diverticulosis without CT evidence for acute diverticulitis. No bowel wall thickening or obstruction. APPENDIX: Normal appendix. PERITONEUM: No free fluid. No free air. LYMPH NODES: No enlarged lymph nodes. BLADDER: Well distended and normal in appearance. REPRODUCTIVE: The prostate gland is normal in size. BONES: No acute fracture. Severe degenerative disc disease at L5-S1. OTHER FINDINGS: There is a small sliding hiatal hernia. IMPRESSION: 1. No acute abdominal or pelvic abnormality. 2. Constipation. No evidence for bowel obstruction. 3. Scattered colonic diverticulosis without CT evidence for acute diverticulitis. 4. Punctate nonobstructing stone in the lower pole of the right kidney.
[2018-11-26 15:47] LABS: PH,URINE 7.5 (4.7-8.0); URINE BILIRUBIN NEGATIVE (NEGATIVE); URINE BLOOD NEGATIVE (NEGATIVE); URINE GLUCOSE (UA) NEGATIVE (NEGATIVE); URINE LEUKOCYTE ESTERASE NEGATIVE Leu/uL (NEGATIVE); URINE PROTEIN NEGATIVE mg/dL (<30 mg/dL); URINE UROBILINOGEN 0.2 E.U./dL (<1 E.U./dL)
[2018-11-26 15:51] LABS: URINE APPEARANCE CLEAR (CLEAR); URINE COLOR YELLOW (YELLOW)
--- NOTE | 2018-11-26 15:55 | CP.PCM.HP ---
<Simone Delgado - Last Filed: 11/26/18 16:48> History of Present Illness - History of Present Illness History of Present Illness: Simone Delgado, PGY1 Medicine H&P for Dr. Tracy: CC: Intractable abd pain and n/v with meals or liquids, Pt is a 53 yo M with pmhx of HTN, HLD, CVA w/ residual gati instability, HIV/AIDS (last 1000), osteonecrosis and osteoarthritis who comes to [facility] for intractable abd pain and n/v with meals or liquids. Pt states that he has had this abd pain for about 1 week and he notes that this pain in unrelated to food. He states that he is currently having 8/10 abd pain that is burning in nature without radiation, located in the epigastric region. Pt states that whenever he eats or drinks anything he gets pain and then he has an episode of vomiting. Pt describes the emesis as non-bloody, non-billious white foamy emesis. Pt at this time denies any fevers, chills, headache, chest pain, SOB, cough, diarrhea, constipation, dysuria or hematuria. Pt does admit to the abdominal pain and also admits to a sore throat which he states has been present for about 2 weeks, but is improving. Pmhx: HTN, HLD, CVA w/ residual gati instability, HIV/AIDS (last 1000), osteonecrosis and osteoarthritis Pshx: R knee arthroscopy, L knee tib/fib repair All: See Summary Soc: 1 ppd x 33yrs, wine socially, cocaine use (5x/mo) Fam: Mom: Breast ca, stomach ca, Brother: Stomach ca PMD: Dr. Alvarado Pharm: [facility] on [facility]. Present on Admission - Present on Admission Any Indicators Present on Admission: No Past Patient History - Infectious Disease Hx of Infectious Diseases: None - Tetanus Immunizations Tetanus Immunization: Unknown - Past Medical History & Family History Past Medical History?: Yes - Past Social History Smoking Status: Heavy Smoker > 10 Cigarettes Daily - CARDIAC Hx Cardiac Disorders: No Hx Hypertension: Yes - PULMONARY Hx Respiratory Disorders: Yes Hx Bronchitis: Yes - NEUROLOGICAL Hx Neurological Disorder: No - HEENT Hx HEENT Problems: Yes (glasses) - RENAL Hx Chronic Kidney Disease: No - ENDOCRINE/METABOLIC Hx Endocrine Disorders: No - HEMATOLOGICAL/ONCOLOGICAL Hx Blood Disorders: Yes Hx AIDS: Yes - INTEGUMENTARY Hx Dermatological Problems: No - MUSCULOSKELETAL/RHEUMATOLOGICAL Hx Musculoskeletal Disorders: Yes Hx Osteoarthritis: Yes Other/Comment: Oseto-necrosis. Bacterial to Left Knee - GASTROINTESTINAL Hx Gastrointestinal Disorders: No Hx Gastroesophageal Reflux: No - GENITOURINARY/GYNECOLOGICAL Hx Genitourinary Disorders: No - PSYCHIATRIC Hx Psychophysiologic Disorder: Yes Hx Anxiety: Yes Hx Substance Use: No (Former Cocaine User) - SURGICAL HISTORY Hx Appendectomy: Yes Hx Cholecystectomy: Yes Hx Orthopedic Surgery: Yes (Bacteria to Left Knee) - ANESTHESIA Hx Anesthesia: Yes Hx Anesthesia Reactions: No Hx Malignant Hyperthermia: No Meds Home Medications: Home Medication List Medication Instructions Recorded Confirmed Type Aspirin [Ecotrin] 81 mg PO DAILY tabec 11/27/18 Rx Atorvastatin [Lipitor] 10 mg PO DIN tab 11/27/18 Rx Benzocaine/Menthol [Cepacol Sore 1 luis MT Q2H PRN 5 Days #30 luis 11/27/18 Rx Throat] Emtricitabine/Tenofovir Diso 1 tab PO DAILY tab 11/27/18 Rx [Truvada 200 MG-300 MG] Gabapentin [Neurontin] 600 mg PO TID tab 11/27/18 Rx Lisinopril [Zestril] 10 mg PO DAILY tab 11/27/18 Rx Pantoprazole [Protonix EC Tab] 40 mg PO 0600 ect 11/27/18 Rx Polyethylene Glycol 3350 [Miralax] 17 gm PO BID 14 Days #28 ml 11/27/18 Rx Polyethylene Glycol 3350 [Miralax] 17 gm PO TID 14 Days #42 packet 11/27/18 Rx Sodium Chloride Nasal [place] [[place] 0 ml NS TID PRN bottle 11/27/18 Rx Nasal [place]] amLODIPine [Norvasc] 10 mg PO DAILY tab 11/27/18 Rx hydrALAZINE [Apresoline] 25 mg PO TID tab 11/27/18 Rx oxyCODONE [oxyCODONE Immediate 30 mg PO Q6H PRN tab 11/27/18 Rx Release Tab] Allergies/Adverse Reactions: Allergies Allergy/AdvReac Type Severity Reaction Status Date / Time Iodinated Contrast- Oral and Allergy SHORTNESS Verified 01/17/18 13:38 IV Dye OF BREATH [Iodinated Contrast Media - Oral and] Penicillins Allergy SHORTNESS Verified 01/17/18 13:38 OF BREATH shellfish derived Allergy SHORTNESS Verified 01/17/18 13:38 OF BREATH sulfamethoxazole Allergy ITCHING Verified 01/17/18 13:38 [From Bactrim] trimethoprim [From Bactrim] Allergy ITCHING Verified 01/17/18 13:38 mushroom Allergy ITCHING Uncoded 01/17/18 13:38 Physical Exam - Constitutional Appears: Non-toxic, No Acute Distress, Other (tremulous) - Head Exam Head Exam: ATRAUMATIC, NORMAL INSPECTION, NORMOCEPHALIC - Eye Exam Eye Exam: EOMI, Normal appearance, PERRL - ENT Exam Additional comments: poor dentition, Glossitis - Respiratory Exam Respiratory Exam: Decreased Breath Sounds, NORMAL BREATHING PATTERN. absent: Accessory Muscle Use, Rales, Rhonchi, Wheezes - Cardiovascular Exam Cardiovascular Exam: RRR, +S1, +S2. absent: Gallop, Rubs - GI/Abdominal Exam GI & Abdominal Exam: Normal Bowel Sounds, Soft, Tenderness (in the epigastric r egion). absent: Distended, Firm, Guarding - Extremities Exam Extremities exam: Positive for: normal inspection, pedal pulses present. Negative for: pedal edema - Back Exam Back exam: NORMAL INSPECTION. absent: CVA tenderness (L), CVA tenderness (R) - Neurological Exam Neurological exam: Alert, Oriented x3 - Psychiatric Exam Psychiatric exam: Normal Affect, Normal Mood - Skin Skin Exam: Dry, Normal Color, Warm Results - Vital Signs Recent Vital Signs: Last Vital Signs Temp 97.9 F 11/26/18 11:15 Pulse 85 11/26/18 15:12 Resp 18 11/26/18 15:12 BP 144/83 11/26/18 15:12 Pulse Ox 96 11/26/18 15:12 - Labs Result Diagrams: 11/26/18 11:25 11/26/18 11:25 Labs: Laboratory Results - last 24 hr 11/26/18 11/26/18 11/26/18 11:25 11:25 11:25 WBC 12.4 H RBC 5.32 Hgb 14.8 Hct 45.3 MCV 85.2 MCH 27.8 MCHC 32.7 RDW 15.1 H Plt Count 259 MPV 9.7 Neut % (Auto) 63.3 Lymph % (Auto) 23.0 Linn % (Auto) 8.0 H Eos % (Auto) 5.5 H Baso % (Auto) 0.2 Lymph # (Auto) 2.8 Linn # (Auto) 1.0 H Eos # (Auto) 0.7 Baso # (Auto) 0.03 Absolute Neuts (auto) 7.82 H pO2 VBG pH VBG pCO2 VBG HCO3 VBG Total CO2 VBG O2 Sat (Calc) VBG Base Excess VBG Potassium Glucose Lactate FiO2 Sodium 136 Potassium 4.6 Chloride 101 Carbon Dioxide 26 Anion Gap 14 BUN 19 Creatinine 1.1 Est GFR ( Amer) > 60 Est GFR (Non-Af Amer) > 60 Random Glucose 137 H Calcium 9.6 Total Bilirubin 0.5 AST 29 ALT 25 Alkaline Phosphatase 90 Lactate Dehydrogenase 667 Total Creatine Kinase 243 H CK-MB (CK-2) 2.7 CK-MB (CK-2) % Cancelled Troponin I 0.02 NT-Pro-B Natriuret Pep 153 Total Protein 7.4 Albumin 4.2 Globulin 3.1 Albumin/Globulin Ratio 1.4 Lipase 61 Venous Blood Potassium 11/26/18 11:30 WBC RBC Hgb Hct MCV MCH MCHC RDW Plt Count MPV Neut % (Auto) Lymph % (Auto) [place] % (Auto) Eos % (Auto) Baso % (Auto) Lymph # (Auto) Linn # (Auto) Eos # (Auto) Baso # (Auto) Absolute Neuts (auto) pO2 66 H VBG pH 7.44 H VBG pCO2 45.0 VBG HCO3 30.6 H VBG Total CO2 32.0 H VBG O2 Sat (Calc) 96.5 H VBG Base Excess 5.6 H VBG Potassium 4.9 Glucose 143 H Lactate 1.0 FiO2 21.0 Sodium 142.0 Potassium Chloride 107.0 Carbon Dioxide Anion Gap BUN Creatinine Est GFR ( Amer) Est GFR (Non-Af Amer) Random Glucose Calcium Total Bilirubin AST ALT Alkaline Phosphatase Lactate Dehydrogenase Total Creatine Kinase CK-MB (CK-2) CK-MB (CK-2) % Troponin I NT-Pro-B Natriuret Pep Total Protein Albumin Globulin Albumin/Globulin Ratio Lipase Venous Blood Potassium 4.9 Assessment & Plan - Assessment and Plan (Free Text) Assessment: Pt is a 53 yo M with pmhx of HTN, HLD, CVA w/ residual gati instability, HIV/AIDS (last 1000), osteonecrosis and osteoarthritis who comes to [facility] for intractable abd pain and n/v with meals or liquids. Plan: Abd pain with associated intrabtable N/V: - CT AP 11/26/18 w/o IV or PO contrast showed: Constipation, divertiulosis w/out diverticulitis and non-obstructive Kidney stone in the lower pole of the R kidney - RUQ abd US - Start zofran 4 q6 PRN - Start CLD - Cont Protonix 40mg PO qd - GI consulted, Dr. Barragan, will appreciate recs Pharyngitis: - Cephacol lozenges Constipation: - Start miralax and colace Substance Abuse: - UDS ordered - Counseled pt to stop using cocaine - Trops trended Tobacco Abuse: - Start Nicotine patch 21 PRN - Counseled pt to stop using tobacco Hx of HTN: - Resume home norvasc, hydsralazine and lisinopril Hx of HLD - Cont home atorvastatin Hx of CVA - Cont ASA, atorvastatin Hx of HIV/AIDS - Cont home truvada, and home Dolutegravir - Will reachout to outpt ID doc for last CD4 count PPx: - DVT: SCDs, Lovenox 40 - GI: protonix Case seen and discussed with Dr. Demarcus Delgado PGY-1 <Emilia Tracy - Last Filed: 11/27/18 14:35> Results - Vital Signs Recent Vital Signs: Last Vital Signs Temp 98.6 F 11/27/18 06:00 Pulse 73 11/27/18 11:02 Resp 20 11/27/18 06:00 BP 148/93 H 11/27/18 11:03 Pulse Ox 96 11/27/18 06:00 - Labs Result Diagrams: 11/27/18 06:20 11/27/18 06:20 Labs: Laboratory Results - last 24 hr 11/26/18 11/26/18 11/26/18 06:45 06:45 15:15 WBC RBC Hgb Hct MCV MCH MCHC RDW Plt Count MPV Neut % (Auto) Lymph % (Auto) [place] % (Auto) Eos % (Auto) Baso % (Auto) Lymph # (Auto) [place] # (Auto) Eos # (Auto) Baso # (Auto) Absolute Neuts (auto) Sodium Potassium Chloride Carbon Dioxide Anion Gap BUN Creatinine Est GFR ( Amer) Est GFR (Non-Af Amer) Random Glucose Hemoglobin A1c 6.9 H Calcium Phosphorus Magnesium Total Bilirubin AST ALT Alkaline Phosphatase Troponin I Total Protein Albumin Globulin Albumin/Globulin Ratio Triglycerides 111 Cholesterol 157 LDL Cholesterol Direct 108 HDL Cholesterol 35 Urine Color Yellow Urine Appearance Clear Urine pH 7.5 Ur Specific [place] 1.015 Urine Protein Negative Urine Glucose (UA) Negative Urine Ketones Negative Urine Blood Negative Urine Nitrate Negative Urine Bilirubin Negative Urine Urobilinogen 0.2 Ur Leukocyte Esterase Negative 11/26/18 11/27/18 11/27/18 21:11 00:30 06:20 WBC 10.5 RBC 5.29 Hgb 14.2 Hct 45.2 MCV 85.4 MCH 26.8 MCHC 31.4 RDW 15.1 H Plt Count 265 MPV 9.6 Neut % (Auto) 43.4 L Lymph % (Auto) 36.5 H [place]inn % (Auto) 8.5 H Eos % (Auto) 11.3 H Baso % (Auto) 0.3 Lymph # (Auto) 3.8 H Linn # (Auto) 0.9 H Eos # (Auto) 1.2 H Baso # (Auto) 0.03 Absolute Neuts (auto) 4.55 Sodium Potassium Chloride Carbon Dioxide Anion Gap BUN Creatinine Est GFR ( Amer) Est GFR (Non-Af Amer) Random Glucose Hemoglobin A1c Calcium Phosphorus Magnesium Total Bilirubin AST ALT Alkaline Phosphatase Troponin I 0.02 0.02 Total Protein Albumin Globulin Albumin/Globulin Ratio Triglycerides Cholesterol LDL Cholesterol Direct HDL Cholesterol Urine Color Urine Appearance Urine pH Ur Specific Cow[place] Urine Protein Urine Glucose (UA) Urine Ketones Urine Blood Urine Nitrate Urine Bilirubin Urine Urobilinogen Ur Leukocyte Esterase 11/27/18 06:20 WBC RBC Hgb Hct MCV MCH MCHC RDW Plt Count MPV Neut % (Auto) Lymph % (Auto) [place] % (Auto) Eos % (Auto) Baso % (Auto) Lymph # (Auto) [place] # (Auto) Eos # (Auto) Baso # (Auto) Absolute Neuts (auto) Sodium 136 Potassium 4.5 Chloride 99 Carbon Dioxide 28 Anion Gap 14 BUN 15 Creatinine 1.3 Est GFR ( Amer) > 60 Est GFR (Non-Af Amer) 58 Random Glucose 110 Hemoglobin A1c Calcium 9.1 Phosphorus 4.0 Magnesium 1.9 Total Bilirubin 0.6 AST 27 ALT 17 Alkaline Phosphatase 94 Troponin I Total Protein 7.4 Albumin 4.0 Globulin 3.4 Albumin/Globulin Ratio 1.2 Triglycerides Cholesterol LDL Cholesterol Direct HDL Cholesterol Urine Color Urine Appearance Urine pH Ur Specific [place] Urine Protein Urine Glucose (UA) Urine Ketones Urine Blood Urine Nitrate Urine Bilirubin Urine Urobilinogen Ur Leukocyte Esterase Attending/Attestation - Attestation I have personally seen and examined this patient.: Yes I have fully participated in the care of the patient.: Yes I have reviewed all pertinent clinical information: Yes Notes (Text): 11/27/18 14:31 Attending note; Patient seen and examined with resident. Patient is alert and awake. Complaining of epigastric discomfort. Denies any chest pain, shortness of breath. Complaining of nausea and vomiting. Patient had a bowel movement yesterday . Patient have episodes of constipation. Patient is wheelchair-bound mostly. Patient is a 53-year-old male with pmhx of HTN, HLD, CVA with residual gait instability, HIV/AIDS (last 1000), osteonecrosis and osteoarthritis who comes to [facility] for intractable abdominal pain and nausea, vomiting. 1. Abdominal pain; patient mostly has epigastric and left-sided pain associated with nausea and vomiting. Abdominal CAT scan showing constipation and diverticulosis. Patient has episodes of constipation. Started on MiraLAX. Started on clear liquid diet 2. Nausea, vomiting; continue Zofran as needed. 3. HIV; continue home medications. 4. Morbid obesity; diet, exercise and weight reduction advised. 5. Opiate dependency; constipation is secondary to chronic opiates. Advised to decrease the dose of opiates and discontinue. 6. Wheelchair-bound; ambulate as tolerated . GI evaluation requested. Monitor for symptoms of nausea and vomiting. Upon discharge the patient will follow up with PMD Dr. Alvarado.
[2018-11-26] MEDS ORDERED: Benzocaine/Menthol (Cepacol) Lozenge MT PRN (16:00)
[2018-11-26 16:42] VITALS: BMI 39.5
[2018-11-26 17:05] VITALS: RESP 20
[2018-11-26 17:22] LABS: HDL CHOLESTEROL 35 mg/dL (29-60)
[2018-11-26 17:32] LABS: LDL CHOLESTEROL 108 mg/dL (0-129)
[2018-11-26] MEDS ORDERED: BREO ELLIPTA INH SCH (18:00)
--- NOTE | 2018-11-26 20:35 | CARD ---
APPROVED REPORT Date of service: 11/26/2018 EKG Measurement Heart [id number] <Conclusion> Normal sinus rhythm Possible Left atrial enlargement T wave abnormality, consider lateral ischemia Abnormal ECG
[2018-11-27] MEDS: oxyCODONE 30 mg Immediate Release Tab PO PRN ×2 (05:06→11:02)
[2018-11-27] MEDS ORDERED: Pantoprazole 40 mg EC Tab PO SCH (06:00)
[2018-11-27 07:06] LABS: BASO # 0.03 K/mm3 (0.0-2.0); BASO % 0.3 % (0.0-3.0); EOS # 1.2 (0.0-0.7); EOS % 11.3 % (1.5-5.0); HEMOGLOBIN 14.2 g/dL (14.0-18.0); LYMPH # 3.8 (1.2-3.4); LYMPH % 36.5 % (22.0-35.0); MEAN CELL VOLUME 85.4 fl (80.0-105.0); MEAN CORPUSCULAR HEMOGLOBIN 26.8 pg (25.0-35.0); MEAN CORPUSCULAR HGB CONC 31.4 g/dl (31.0-37.0); MEAN PLATELET VOLUME 9.6 fl (7.0-11.0); MONO # 0.9 (0.1-0.6); MONO % 8.5 % (1.0-6.0); RBC 5.29 10^6/uL (3.5-6.1); RED CELL DISTRIBUTION WIDTH 15.1 % (11.5-14.5); WHITE BLOOD COUNT 10.5 10^3/uL (4.5-11.0)
[2018-11-27 07:24] VITALS: BP 148/93; PULSE 73; TEMP 98.6; O2SAT 96
[2018-11-27 08:07] LABS: ALB/GLOB RATIO 1.2 (1.1-1.8); ALT/SGPT 17 U/L (7-56); AST/SGOT 27 U/L (17-59); BLOOD UREA NITROGEN 15 mg/dL (7-21); CALCIUM 9.1 mg/dL (8.4-10.5); GFR NON-AFRICAN AMERICAN 58
[2018-11-27] MEDS ORDERED: POLYETHYLENE GLYCOL 3350 17 GM/Dose PACKET PO SCH ×2 (10:00)
[2018-11-27] MEDS ORDERED: Enoxaparin 40 mg Syringe SC SCH (10:00)
[2018-11-27] MEDS ORDERED: Emtricitabine-Tenofovir 200 mg-300 mg Tab PO SCH (10:00)
[2018-11-27] MEDS ORDERED: DOLUTEGRAVIR 50 MG PO SCH (10:00)
--- NOTE | 2018-11-27 12:58 | CP.PCM.DIS ---
<Simone Delgado - Last Filed: 11/27/18 13:54> Provider - Provider Date of Admission: 11/26/18 14:40 Attending physician: Emilia Tracy MD Primary care physician: Emilia Tracy MD Consults: 11/26/18 15:34 Physician Consult Routine Comment: Consulting Provider: Daniel Barragan Consulting Physician: Daniel Barragan Reason for Consult: intractable abdominal pain, N/V Time Spent in preparation of Discharge (in minutes): 45 Diagnosis - Discharge Diagnosis (1) Intractable abdominal pain Status: Acute (2) Sore throat Status: Acute (3) Vomiting Status: Acute Hospital Course - Lab Results Lab Results: Micro Results 11/26/18 11:25 Blood Blood Culture - Preliminary NO GROWTH AFTER 24 HOURS 11/26/18 15:15 Urine Random Urine Culture - Final No Growth (<1,000 CFU/ML) Most Recent Lab Values WBC 10.5 10^3/uL (4.5-11.0) 11/27/18 06:20 RBC 5.29 10^6/uL (3.5-6.1) 11/27/18 06:20 Hgb 14.2 g/dL (14.0-18.0) 11/27/18 06:20 Hct 45.2 % (42.0-52.0) 11/27/18 06:20 MCV 85.4 fl (80.0-105.0) 11/27/18 06:20 MCH 26.8 pg (25.0-35.0) 11/27/18 06:20 MCHC 31.4 g/dl (31.0-37.0) 11/27/18 06:20 RDW 15.1 % (11.5-14.5) H 11/27/18 06:20 Plt Count 265 10^3/uL (120.0-450.0) 11/27/18 06:20 MPV 9.6 fl (7.0-11.0) 11/27/18 06:20 Neut % (Auto) 43.4 % (50.0-68.0) L 11/27/18 06:20 Lymph % (Auto) 36.5 % (22.0-35.0) H 11/27/18 06:20 [place] % (Auto) 8.5 % (1.0-6.0) H 11/27/18 06:20 Eos % (Auto) 11.3 % (1.5-5.0) H 11/27/18 06:20 Baso % (Auto) 0.3 % (0.0-3.0) 11/27/18 06:20 Lymph # (Auto) 3.8 (1.2-3.4) H 11/27/18 06:20 [place] # (Auto) 0.9 (0.1-0.6) H 11/27/18 06:20 Eos # (Auto) 1.2 (0.0-0.7) H 11/27/18 06:20 Baso # (Auto) 0.03 K/mm3 (0.0-2.0) 11/27/18 06:20 Absolute Neuts (auto) 4.55 (1.4-6.5) 11/27/18 06:20 pO2 66 mm/Hg (30-55) H 11/26/18 11:30 VBG pH 7.44 (7.32-7.43) H 11/26/18 11:30 VBG pCO2 45.0 (40-60) 11/26/18 11:30 VBG HCO3 30.6 mmol/l (21-28) H 11/26/18 11:30 VBG Total CO2 32.0 mmol.L (22-28) H 11/26/18 11:30 VBG O2 Sat (Calc) 96.5 % (40-65) H 11/26/18 11:30 VBG Base Excess 5.6 mmol/L (0.0-2.0) H 11/26/18 11:30 VBG Potassium 4.9 mmol/L (3.6-5.2) 11/26/18 11:30 Sodium 142.0 mmol/L (132-148) 11/26/18 11:30 Chloride 107.0 mmol/L (98-107) 11/26/18 11:30 Glucose 143 mg/dl (75-110) H 11/26/18 11:30 Lactate 1.0 mmol/L (0.7-2.1) 11/26/18 11:30 FiO2 21.0 % 11/26/18 11:30 Sodium 136 mmol/L (132-148) 11/27/18 06:20 Potassium 4.5 mmol/L (3.6-5.0) 11/27/18 06:20 Chloride 99 mmol/L (98-107) 11/27/18 06:20 Carbon Dioxide 28 mmol/L (21-33) 11/27/18 06:20 Anion Gap 14 (10-20) 11/27/18 06:20 BUN 15 mg/dL (7-21) 11/27/18 06:20 Creatinine 1.3 mg/dl (0.8-1.5) 11/27/18 06:20 Est GFR ( Amer) > 60 11/27/18 06:20 Est GFR (Non-Af Amer) 58 11/27/18 06:20 Random Glucose 110 mg/dL (70-110) 11/27/18 06:20 Hemoglobin A1c 6.9 % (4.2-6.5) H 11/26/18 06:45 Calcium 9.1 mg/dL (8.4-10.5) 11/27/18 06:20 Phosphorus 4.0 mg/dL (2.5-4.5) 11/27/18 06:20 Magnesium 1.9 mg/dL (1.7-2.2) 11/27/18 06:20 Total Bilirubin 0.6 mg/dL (0.2-1.3) 11/27/18 06:20 AST 27 U/L (17-59) 11/27/18 06:20 ALT 17 U/L (7-56) 11/27/18 06:20 Alkaline Phosphatase 94 U/L (38-126) 11/27/18 06:20 Lactate Dehydrogenase 667 U/L (333-699) 11/26/18 11:25 Total Creatine Kinase 243 U/L (35-230) H 11/26/18 11:25 CK-MB (CK-2) 2.7 ng/mL (0.0-3.6) 11/26/18 11:25 CK-MB (CK-2) % Cancelled 11/26/18 11:25 Troponin I 0.02 ng/mL 11/27/18 00:30 NT-Pro-B Natriuret Pep 153 pg/mL (0-450) 11/26/18 11:25 Total Protein 7.4 g/dL (5.8-8.3) 11/27/18 06:20 Albumin 4.0 g/dL (3.0-4.8) 11/27/18 06:20 Globulin 3.4 gm/dL 11/27/18 06:20 Albumin/Globulin Ratio 1.2 (1.1-1.8) 11/27/18 06:20 Triglycerides 111 mg/dL (35-160) 11/26/18 06:45 Cholesterol 157 mg/dL (130-200) 11/26/18 06:45 LDL Cholesterol Direct 108 mg/dL (0-129) 11/26/18 06:45 HDL Cholesterol 35 mg/dL (29-60) 11/26/18 06:45 Lipase 61 U/L (23-300) 11/26/18 11:25 Venous Blood Potassium 4.9 mmol/L (3.6-5.2) 11/26/18 11:30 Urine Color Yellow (YELLOW) 11/26/18 15:15 Urine Appearance Clear (CLEAR) 11/26/18 15:15 Urine pH 7.5 (4.7-8.0) 11/26/18 15:15 Ur Specific [place] 1.015 (1.005-1.035) 11/26/18 15:15 Urine Protein Negative mg/dL (<30 mg/dL) 11/26/18 15:15 Urine Glucose (UA) Negative mg/dL (NEGATIVE) 11/26/18 15:15 Urine Ketones Negative mg/dL (NEGATIVE) 11/26/18 15:15 Urine Blood Negative (NEGATIVE) 11/26/18 15:15 Urine Nitrate Negative (NEGATIVE) 11/26/18 15:15 Urine Bilirubin Negative (NEGATIVE) 11/26/18 15:15 Urine Urobilinogen 0.2 E.U./dL (<1 E.U./dL) 11/26/18 15:15 Ur Leukocyte Esterase Negative [place]/uL (NEGATIVE) 11/26/18 15:15 - Hospital Course Hospital Course: Upon Admission: Pt is a 53 yo M with pmhx of HTN, HLD, CVA w/ residual gati instability, HIV/AIDS (last 1000), osteonecrosis and osteoarthritis who comes to [facility] for intractable abd pain and n/v with meals or liquids. Pt states that he has had this abd pain for about 1 week and he notes that this pain in unrelated to food. He states that he is currently having 8/10 abd pain that is burning in nature without radiation, located in the epigastric region. Pt states that whenever he eats or drinks anything he gets pain and then he has an episode of vomiting. Pt describes the emesis as non-bloody, non-billious white foamy emesis. Pt at this time denies any fevers, chills, headache, chest pain, SOB, cough, diarrhea, constipation, dysuria or hematuria. Pt does admit to the abdominal pain and also admits to a sore throat which he states has been present for about 2 weeks, but is improving. Hospital Course: Pt was being worked up for Intractable abd pain and n/v and sore throat. Pt had CTAP done which showed constipation, diverticulosis and a non-obstructing kidney stone. GI team is consulted on the pt and the pt is started on CLD. Pt is able to tolerate the CLD and had no bouts of nausea, vomiting at this time. He states that he is feeling better with the fluids and medications that we are giving him. Pt is started on miralax and the pt states that he is feeling better with it on. Pt states that he was taking another medication to soften his stools, but it was causing gas like pain. Pt states that he prefers miralax. Pt had no acute overnight events and states that his abd pain is improving now. Pts VSS and is AOx3. Pt is medically optimized for discharge at this time and the plan for discharge is explained to the pt. Pt expresses understanding and agreement with the plan for discharge, All of the pts questions and concerns were addressed prior to d/c. Discharge Exam - Head Exam Head Exam: ATRAUMATIC, NORMAL INSPECTION, NORMOCEPHALIC - Eye Exam Eye Exam: EOMI, Normal appearance, PERRL - ENT Exam Additional comments: poor dentition, Glossitis - Respiratory Exam Respiratory Exam: Clear to PA & Lateral, NORMAL BREATHING PATTERN, UNREMARKABLE. absent: Accessory Muscle Use, Rales, Rhonchi, Wheezes - Cardiovascular Exam Cardiovascular Exam: RRR, +S1, +S2. absent: Gallop, Rubs - GI/Abdominal Exam GI & Abdominal Exam: Normal Bowel Sounds, Soft. absent: Distended, Firm, Guarding, Tenderness, Unremarkable - Extremities Exam Extremities exam: normal capillary refill, pedal pulses present - Back Exam Back exam: NORMAL INSPECTION. absent: CVA tenderness (L), CVA tenderness (R) - Neurological Exam Neurological exam: Alert, Oriented x3 - Psychiatric Exam Psychiatric exam: Normal Affect, Normal Mood - Skin Skin Exam: Dry, Normal Color, Warm Discharge Plan - Discharge Medications Prescriptions: Benzocaine/Menthol [Cepacol Sore Throat] 1 luis MT Q2H PRN 5 Days #30 luis PRN Reason: Sore Throat Polyethylene Glycol 3350 [Miralax] 17 gm PO TID 14 Days #42 packet Polyethylene Glycol 3350 [Miralax] 17 gm PO BID 14 Days #28 ml - Follow Up Plan Condition: FAIR Disposition: HOME/ ROUTINE Instructions: Abdominal Pain (ED) Additional Instructions: - Please follow up with your Primary Care Doctor, Dr. Alvarado within 3-5 days of discharge. - You were noted to be constipated during your hospital stay, which may be contributing to your abdominal pain. We have give you 2 prescriptions for Miralax. The first prescription for miralax will ask you to take the medication 3 times per day by mouth daily for 2 weeks. The second prescription you will start once the first prescription of miralax is finished (in 2 weeks on 12/11/18) and it will ask you to take the medication 2 times per day my mouth for a final 2 weeks. Please ensure to take this medication daily and that you are staying well hydrated and drinking a full glass of water when taking this medication. - We have also given you a prescription for Cepacol which is a throat lozenge, which you can take for your sore throat as needed every 2 hours. - Please ensure that you take all of your other home medications as directed by your primary care doctor. - If you have any new or returning symptoms please return to the nearest emergency department. Referrals: Truman Alvarado MD [Medical Doctor] - Daniel Barragan MD [Staff Provider] - <Emilia Tracy - Last Filed: 11/27/18 14:40> Provider - Provider Date of Admission: 11/26/18 14:40 Attending physician: Emilia Tracy MD Primary care physician: Emilia Tracy MD Consults: 11/26/18 15:34 Physician Consult Routine Comment: Consulting Provider: Daniel Barragan Consulting Physician: Daniel Barragan Reason for Consult: intractable abdominal pain, N/V Hospital Course - Lab Results Lab Results: Micro Results 11/26/18 13:25 Blood Blood Culture - Preliminary NO GROWTH AFTER 24 HOURS 11/26/18 11:25 Blood Blood Culture - Preliminary NO GROWTH AFTER 24 HOURS 11/26/18 15:15 Urine Random Urine Culture - Final No Growth (<1,000 CFU/ML) Most Recent Lab Values WBC 10.5 10^3/uL (4.5-11.0) 11/27/18 06:20 RBC 5.29 10^6/uL (3.5-6.1) 11/27/18 06:20 Hgb 14.2 g/dL (14.0-18.0) 11/27/18 06:20 Hct 45.2 % (42.0-52.0) 11/27/18 06:20 MCV 85.4 fl (80.0-105.0) 11/27/18 06:20 MCH 26.8 pg (25.0-35.0) 11/27/18 06:20 MCHC 31.4 g/dl (31.0-37.0) 11/27/18 06:20 RDW 15.1 % (11.5-14.5) H 11/27/18 06:20 Plt Count 265 10^3/uL (120.0-450.0) 11/27/18 06:20 MPV 9.6 fl (7.0-11.0) 11/27/18 06:20 Neut % (Auto) 43.4 % (50.0-68.0) L 11/27/18 06:20 Lymph % (Auto) 36.5 % (22.0-35.0) H 11/27/18 06:20 [place] % (Auto) 8.5 % (1.0-6.0) H 11/27/18 06:20 Eos % (Auto) 11.3 % (1.5-5.0) H 11/27/18 06:20 Baso % (Auto) 0.3 % (0.0-3.0) 11/27/18 06:20 Lymph # (Auto) 3.8 (1.2-3.4) H 11/27/18 06:20 [place] # (Auto) 0.9 (0.1-0.6) H 11/27/18 06:20 Eos # (Auto) 1.2 (0.0-0.7) H 11/27/18 06:20 Baso # (Auto) 0.03 K/mm3 (0.0-2.0) 11/27/18 06:20 Absolute Neuts (auto) 4.55 (1.4-6.5) 11/27/18 06:20 pO2 66 mm/Hg (30-55) H 11/26/18 11:30 VBG pH 7.44 (7.32-7.43) H 11/26/18 11:30 VBG pCO2 45.0 (40-60) 11/26/18 11:30 VBG HCO3 30.6 mmol/l (21-28) H 11/26/18 11:30 VBG Total CO2 32.0 mmol.L (22-28) H 11/26/18 11:30 VBG O2 Sat (Calc) 96.5 % (40-65) H 11/26/18 11:30 VBG Base Excess 5.6 mmol/L (0.0-2.0) H 11/26/18 11:30 VBG Potassium 4.9 mmol/L (3.6-5.2) 11/26/18 11:30 Sodium 142.0 mmol/L (132-148) 11/26/18 11:30 Chloride 107.0 mmol/L (98-107) 11/26/18 11:30 Glucose 143 mg/dl (75-110) H 11/26/18 11:30 Lactate 1.0 mmol/L (0.7-2.1) 11/26/18 11:30 FiO2 21.0 % 11/26/18 11:30 Sodium 136 mmol/L (132-148) 11/27/18 06:20 Potassium 4.5 mmol/L (3.6-5.0) 11/27/18 06:20 Chloride 99 mmol/L (98-107) 11/27/18 06:20 Carbon Dioxide 28 mmol/L (21-33) 11/27/18 06:20 Anion Gap 14 (10-20) 11/27/18 06:20 BUN 15 mg/dL (7-21) 11/27/18 06:20 Creatinine 1.3 mg/dl (0.8-1.5) 11/27/18 06:20 Est GFR ( Amer) > 60 11/27/18 06:20 Est GFR (Non-Af Amer) 58 11/27/18 06:20 Random Glucose 110 mg/dL (70-110) 11/27/18 06:20 Hemoglobin A1c 6.9 % (4.2-6.5) H 11/26/18 06:45 Calcium 9.1 mg/dL (8.4-10.5) 11/27/18 06:20 Phosphorus 4.0 mg/dL (2.5-4.5) 11/27/18 06:20 Magnesium 1.9 mg/dL (1.7-2.2) 11/27/18 06:20 Total Bilirubin 0.6 mg/dL (0.2-1.3) 11/27/18 06:20 AST 27 U/L (17-59) 11/27/18 06:20 ALT 17 U/L (7-56) 11/27/18 06:20 Alkaline Phosphatase 94 U/L (38-126) 11/27/18 06:20 Lactate Dehydrogenase 667 U/L (333-699) 11/26/18 11:25 Total Creatine Kinase 243 U/L (35-230) H 11/26/18 11:25 CK-MB (CK-2) 2.7 ng/mL (0.0-3.6) 11/26/18 11:25 CK-MB (CK-2) % Cancelled 11/26/18 11:25 Troponin I 0.02 ng/mL 11/27/18 00:30 NT-Pro-B Natriuret Pep 153 pg/mL (0-450) 11/26/18 11:25 Total Protein 7.4 g/dL (5.8-8.3) 11/27/18 06:20 Albumin 4.0 g/dL (3.0-4.8) 11/27/18 06:20 Globulin 3.4 gm/dL 11/27/18 06:20 Albumin/Globulin Ratio 1.2 (1.1-1.8) 11/27/18 06:20 Triglycerides 111 mg/dL (35-160) 11/26/18 06:45 Cholesterol 157 mg/dL (130-200) 11/26/18 06:45 LDL Cholesterol Direct 108 mg/dL (0-129) 11/26/18 06:45 HDL Cholesterol 35 mg/dL (29-60) 11/26/18 06:45 Lipase 61 U/L (23-300) 11/26/18 11:25 Venous Blood Potassium 4.9 mmol/L (3.6-5.2) 11/26/18 11:30 Urine Color Yellow (YELLOW) 11/26/18 15:15 Urine Appearance Clear (CLEAR) 11/26/18 15:15 Urine pH 7.5 (4.7-8.0) 11/26/18 15:15 Ur Specific [place] 1.015 (1.005-1.035) 11/26/18 15:15 Urine Protein Negative mg/dL (<30 mg/dL) 11/26/18 15:15 Urine Glucose (UA) Negative mg/dL (NEGATIVE) 11/26/18 15:15 Urine Ketones Negative mg/dL (NEGATIVE) 11/26/18 15:15 Urine Blood Negative (NEGATIVE) 11/26/18 15:15 Urine Nitrate Negative (NEGATIVE) 11/26/18 15:15 Urine Bilirubin Negative (NEGATIVE) 11/26/18 15:15 Urine Urobilinogen 0.2 E.U./dL (<1 E.U./dL) 11/26/18 15:15 Ur Leukocyte Esterase Negative [place]/uL (NEGATIVE) 11/26/18 15:15 Attending/Attestation - Attestation I have personally seen and examined this patient.: Yes I have fully participated in the care of the patient.: Yes I have reviewed all pertinent clinical information, including history, physical exam and plan: Yes Notes (Text): Attending note; Patient seen and examined with resident. Patient is alert and awake. Abdominal pain resolved. Denies any nausea, vomiting. Asking for regular food. Denies any chest pain, shortness of breath. Patient is a 53-year-old male with pmhx of HTN, HLD, CVA with residual gait instability, HIV/AIDS (last 1000), osteonecrosis and osteoarthritis who comes to [facility] for intractable abdominal pain and nausea, vomiting. 1. Abdominal pain; patient mostly has epigastric and left-sided pain associated with nausea and vomiting. Abdominal CAT scan showing constipation and diverticulosis. Currently abdominal pain is resolved. Advance clear liquid diet to soft diet. GI evaluation appreciated. Will discharge patient home with MiraLAX. Abdominal ultrasound shows fatty liver. 2. Nausea, vomiting; resolved. 3. HIV; continue home medications. 4. Morbid obesity; diet, exercise and weight reduction advised. Patient states that he will follow-up with bariatric surgery as outpatient. 5. Opiate dependency; constipation is secondary to chronic opiates. Advised to decrease the dose of opiates and discontinue. 6. Wheelchair-bound; ambulate as tolerated . disCharge patient home today. Aggressive bowel regimen to avoid constipation. Upon discharge the patient will follow up with PMD Dr. Alvarado. The diagnosis, treatment plan discussed with patient in detail. Patient's sister by the bedside.
--- NOTE | 2018-11-27 14:29 | US ---
Date of service: 11/26/2018 HISTORY: right upper quadrant focus COMPARISON: None. TECHNIQUE: Sonographic evaluation of the abdomen. FINDINGS: LIVER: Measures cm. Heterogeneous echogenicity of the liver parenchyma. No mass. No intrahepatic bile duct dilatation. GALLBLADDER: Unremarkable. No gallstones. COMMON BILE DUCT: Measures mm. No stones. No dilatation. PANCREAS: Unremarkable as visualized. No mass. No ductal dilatation. RIGHT KIDNEY: Measures cm. Normal echogenicity. No calculus, mass, or hydronephrosis. LEFT KIDNEY: Measures cm. Normal echogenicity. No calculus, mass, or hydronephrosis. SPLEEN: Normal in size and contour. No mass. AORTA: No aneurysmal dilatation. IVC: Unremarkable. OTHER FINDINGS: None. IMPRESSION: Fibro/fatty infiltration of the liver.
--- NOTE | 2018-11-27 18:35 | CON ---
DATE OF CONSULTATION: 11/27/2018 GASTROENTEROLOGY CONSULTATION REQUESTING PHYSICIAN: Dr. Tracy. REASON FOR CONSULTATION: I have been asked to see this 53-year-old male with a history of HIV disease, history of CVA with unsteady gait, who comes to the hospital with intractable abdominal pain and nausea and vomiting. The patient states that the abdominal pain began 1 week ago. Over the last several days, the patient has had nausea and vomiting. He denies any diarrhea. He states that he has regular bowel movements. CT scan of the abdomen and pelvis revealed increased stool throughout the colon with fecalization of the small bowel. This morning, the patient states that his pain has vastly improved. He has not had any further nausea and vomiting. He is tolerating a liquid diet. PAST MEDICAL HISTORY: As above. Again, he has a history of HIV disease, on triple antivirals, CVA with unsteady gait, osteonecrosis and osteoarthritis of his knees and hips, hypertension, hyperlipidemia. PAST SURGICAL HISTORY: Notable for left knee surgery, right knee arthroscopy. SOCIAL HISTORY: He smokes up to a pack of cigarettes per day. He uses cocaine on a regular basis. FAMILY HISTORY: Notable for mother with breast cancer and a brother with stomach cancer. REVIEW OF SYSTEMS: Fourteen-point review of systems is notable for abdominal pain, nausea and vomiting. MEDICATIONS: Medications at home include Chronulac, oxycodone, Lipitor, hydralazine, Neurontin, Truvada 200/300, fluticasone, Tivicay, Norvasc, Zestril, albuterol, pantoprazole, and aspirin. PHYSICAL EXAMINATION: GENERAL: Well-developed male, lying in bed, in no acute distress. VITAL SIGNS: Reveal a temperature of 98.6, blood pressure 148/93, heart rate of 73. HEENT: Reveals sclerae to be white. Conjunctivae pink. NECK: Supple. CHEST: Lungs are clear. HEART: Exam reveals regular rate and rhythm. ABDOMEN: Soft, obese, and nontender. No mass. EXTREMITIES: Show no edema. LABORATORY DATA: Reveal a white blood cell count of 10.5, on admission it was 12.4; hemoglobin 14.2. Chemistries reveal normal electrolytes, normal AST, ALT, alk phos. IMPRESSION: A 53-year-old male with human immunodeficiency virus positivity/acquired immunodeficiency syndrome, history of cerebrovascular accident with unsteady gait with abdominal pain, nausea, and vomiting. CT scan of the abdomen and pelvis show increased stool throughout the colon as well as fecalization of the small bowel. I suspect that his abdominal pain, nausea and vomiting are secondary to constipation. RECOMMENDATIONS: 1. We will switch the patient to MiraLax 17 g three times a day. 2. Advance diet as tolerated. 3. The patient can follow up with his primary care doctor to schedule an elective colonoscopy. Daniel Barragan MD
== END 2018-11-27 16:40 | disposition home or self-care (01) ==
LOC: ED 10:46 → ERH 14:40 → 3RSO 16:22
PROVIDERS: ADMIT Internal Medicine; ATTEND Internal Medicine
DX: R10.9 Unspecified abdominal pain (principal); B20 Human immunodeficiency virus [HIV] disease; F11.20 Opioid dependence, uncomplicated; K59.03 Drug induced constipation; T40.2X5A Adverse effect of other opioids, initial encounter; I10 Essential (primary) hypertension; M16.0 Bilateral primary osteoarthritis of hip; M17.0 Bilateral primary osteoarthritis of knee; F17.210 Nicotine dependence, cigarettes, uncomplicated; E78.5 Hyperlipidemia, unspecified; Z86.73 Personal history of transient ischemic attack (TIA), and cerebral infarction without residual deficits; M51.37 Other intervertebral disc degeneration, lumbosacral region; Z99.3 Dependence on wheelchair; E66.01 Morbid (severe) obesity due to excess calories; Z68.39 Body mass index [BMI] 39.0-39.9, adult
CPT/HCPCS: 36415; 71045; 74176; 76700; 80053; 80061; 81003; 82550; 82553; 82803; 83036; 83615; 83690; 83735; 83880; 84100; 84484; 85025; 87040; 87086; 93005; 96374; 97161; 99283; C9113; G0378; G8978; G8979; G8980; J1650; J2270; J2405